=== PATIENT | female | born 1950 | race American Indian/Alaskan Native ===

== ENCOUNTER 2016-12-14 10:37 | Emergency (ER) | payer MEDICARE ==
[2016-12-14 11:55] LABS: Bilirubin,Urine NEG (Negative); Blood,Urine SM (Negative); Ketones,Urine NEG (Negative); Leukocyte Esterase,Urine TR (Negative); Mucus,Urine FEW /HPF; Nitrite,Urine NEG (Negative); Urobilinogen,Urine < 2.0 mg/dL (<2.0)
--- NOTE | 2016-12-14 11:58 | Emergency Department Report ---
ED Altered Mental Status HPI - General Chief Complaint: Altered Mental Status Stated Complaint: AMS Time Seen by Provider: 12/14/16 11:23 Source: EMS Mode of arrival: Stretcher Limitations: Other (dementia) - History of Present Illness Initial Comments: 66-year-old female presents to the emergency department via EMS for evaluation of altered mental status. History is obtained from EMS and the patient's family due to the patient's dementia. Per report, the patient had a syncopal episode at her adult day care facility while attempting to have a bowel movement. Upon EMS arrival on the scene, the patient was conscious and alert. Nursing notes report that the patient was complaining of generalized pain. Patient is denying pain at this time. There are no other complaints. MD Complaint: altered mental status -: Sudden, This morning Severity: moderate Consistency of Symptoms: unknown (currently resolved) Associated Symptoms: denies other symptoms - Related Data Home Medications Medication Instructions Recorded Confirmed Last Taken ALPRAZolam [Alprazolam] 0.5 mg PO Q12HR PRN 03/20/14 05/24/16 03/19/14 Donepezil [Aricept] 10 mg PO QDAY 03/20/14 05/24/16 03/19/14 Latanoprost 0.005% [Xalatan 0.005%] 1 drop OP QPM 09/21/15 05/24/16 Unknown Lisinopril [Zestril TAB] 5 mg PO QDAY 09/21/15 05/24/16 Unknown Previous Rx's Medication Instructions Recorded Last Taken Type Aspirin [Aspirin TAB] 325 mg PO QDAY #30 tablet 08/15/14 Unknown Rx Metoprolol [Lopressor TAB] 50 mg PO QDAY #30 tablet 08/15/14 Unknown Rx Simvastatin [Zocor TAB] 20 mg PO QHS #30 tablet 08/15/14 Unknown Rx guaiFENesin DM [Robitussin Dm] 10 ml PO Q4H PRN #150 oral.liqd 08/15/14 Unknown Rx levETIRAcetam [Keppra TAB] 500 mg PO BID 30 Days 05/26/16 Unknown Rx Allergies Allergy/AdvReac Type Severity Reaction Status Date / Time No Known Allergies Allergy Verified 08/13/14 08:26 ED Review of Systems ROS: Stated complaint: AMS Other details as noted in HPI Comment: Unobtainable due to pts medical conditions ED Past Medical Hx - Past Medical History Previous Medical History?: Yes Hx Hypertension: Yes Hx CVA: Yes (Left sided deficits, had resolved.) Hx Seizures: Yes (epilepsy) Hx Dementia: Yes - Surgical History Past Surgical History?: Yes Hx Pacemaker: Yes Additional Surgical History: pacemaker to L chest - Family History Family history: no significant - Social History Smoking Status: Never Smoker - Medications Home Medications: Home Medications Medication Instructions Recorded Confirmed Last Taken Type ALPRAZolam [Alprazolam] 0.5 mg PO Q12HR PRN 03/20/14 05/24/16 03/19/14 History Donepezil [Aricept] 10 mg PO QDAY 03/20/14 05/24/16 03/19/14 History Aspirin [Aspirin TAB] 325 mg PO QDAY #30 tablet 08/15/14 05/24/16 Unknown Rx Metoprolol [Lopressor TAB] 50 mg PO QDAY #30 tablet 08/15/14 05/24/16 Unknown Rx Simvastatin [Zocor TAB] 20 mg PO QHS #30 tablet 08/15/14 05/24/16 Unknown Rx guaiFENesin DM [Robitussin Dm] 10 ml PO Q4H PRN #150 oral.liqd 08/15/14 Unknown Rx Latanoprost 0.005% [Xalatan 0.005%] 1 drop OP QPM 09/21/15 05/24/16 Unknown History Lisinopril [Zestril TAB] 5 mg PO QDAY 09/21/15 05/24/16 Unknown History levETIRAcetam [Keppra TAB] 500 mg PO BID 30 Days 05/26/16 Unknown Rx ED Physical Exam - General Limitations: Other (dementia) General appearance: alert, in no apparent distress - Head Head exam: Present: atraumatic, normocephalic - Eye Eye exam: Present: normal appearance, PERRL, EOMI - ENT ENT exam: Present: normal exam, normal orophraynx, mucous membranes moist - Neck Neck exam: Present: normal inspection, full ROM. Absent: tenderness - Respiratory Respiratory exam: Present: normal lung sounds bilaterally. Absent: respiratory distress - Cardiovascular Cardiovascular Exam: Present: regular rate, normal rhythm, normal heart sounds - GI/Abdominal GI/Abdominal exam: Present: soft, normal bowel sounds. Absent: distended, tenderness - Extremities Exam Extremities exam: Present: normal inspection, full ROM. Absent: tenderness - Back Exam Back exam: Present: normal inspection, full ROM. Absent: tenderness - Neurological Exam Neurological exam: Present: alert. Absent: oriented X3 (person only) - Skin Skin exam: Present: warm, dry, intact ED Course Vital Signs 12/14/16 10:41 Pulse Rate 75 Respiratory 16 Rate Blood Pressure 133/93 O2 Sat by Pulse 98 Oximetry - Lab Data Result diagrams: 12/14/16 11:23 12/14/16 11:23 Lab Results 12/14/16 12/14/16 12/14/16 Range/Units 11:23 11:23 11:23 WBC 5.0 (4.5-11.0) K/mm3 RBC 4.68 (3.65-5.03) M/mm3 Hgb 12.9 (10.1-14.3) gm/dl Hct 41.2 (30.3-42.9) % MCV 88 (79-97) fl MCH 28 (28-32) pg MCHC 31 (30-34) % RDW 14.5 (13.2-15.2) % Plt Count 306 (140-440) K/mm3 Lymph % (Auto) 12.3 L (13.4-35.0) % [place] % (Auto) 8.7 H (0.0-7.3) % Eos % (Auto) 0.5 (0.0-4.3) % Baso % (Auto) 0.4 (0.0-1.8) % Lymph # 0.6 L (1.2-5.4) K/mm3 [place] # 0.4 (0.0-0.8) K/mm3 Eos # 0.0 (0.0-0.4) K/mm3 Baso # 0.0 (0.0-0.1) K/mm3 Seg Neutrophils % 78.1 H (40.0-70.0) % Seg Neutrophils # 3.9 (1.8-7.7) K/mm3 PT 14.1 (12.2-14.9) Sec. INR 1.10 (0.87-1.13) APTT 26.8 (24.2-36.6) Sec. Sodium 139 (137-145) mmol/L Potassium 4.6 (3.6-5.0) mmol/L Chloride 100.2 (98-107) mmol/L Carbon Dioxide 23 (22-30) mmol/L Anion Gap 20 mmol/L BUN 16 (7-17) mg/dL Creatinine 0.7 (0.7-1.2) mg/dL Estimated GFR > 60 ml/min BUN/Creatinine Ratio 22.85 % Glucose 94 (65-100) mg/dL Calcium 9.1 (8.4-10.2) mg/dL Total Creatine Kinase 74 (30-135) units/L Troponin T < 0.010 (0.00-0.029) ng/mL Urine Color (Yellow) Urine Turbidity (Clear) Urine pH (5.0-7.0) Ur Specific [place] (1.003-1.030) Urine Protein (Negative) mg/dL Urine Glucose (UA) (Negative) mg/dL Urine Ketones (Negative) mg/dL Urine Blood (Negative) Urine Nitrite (Negative) Urine Bilirubin (Negative) Urine Urobilinogen (<2.0) mg/dL Ur Leukocyte Esterase (Negative) Urine WBC (Auto) (0.0-6.0) /HPF Urine RBC (Auto) (0.0-6.0) /HPF U Epithel Cells (Auto) (0-13.0) /HPF Urine Mucus /HPF 12/14/16 Range/Units 11:30 WBC (4.5-11.0) K/mm3 RBC (3.65-5.03) M/mm3 Hgb (10.1-14.3) gm/dl Hct (30.3-42.9) % MCV (79-97) fl MCH (28-32) pg MCHC (30-34) % RDW (13.2-15.2) % Plt Count (140-440) K/mm3 Lymph % (Auto) (13.4-35.0) % [place] % (Auto) (0.0-7.3) % Eos % (Auto) (0.0-4.3) % Baso % (Auto) (0.0-1.8) % Lymph # (1.2-5.4) K/mm3 [place] # (0.0-0.8) K/mm3 Eos # (0.0-0.4) K/mm3 Baso # (0.0-0.1) K/mm3 Seg Neutrophils % (40.0-70.0) % Seg Neutrophils # (1.8-7.7) K/mm3 PT (12.2-14.9) Sec. INR (0.87-1.13) APTT (24.2-36.6) Sec. Sodium (137-145) mmol/L Potassium (3.6-5.0) mmol/L Chloride (98-107) mmol/L Carbon Dioxide (22-30) mmol/L Anion Gap mmol/L BUN (7-17) mg/dL Creatinine (0.7-1.2) mg/dL Estimated GFR ml/min BUN/Creatinine Ratio % Glucose (65-100) mg/dL Calcium (8.4-10.2) mg/dL Total Creatine Kinase (30-135) units/L Troponin T (0.00-0.029) ng/mL Urine Color Yellow (Yellow) Urine Turbidity Clear (Clear) Urine pH 6.0 (5.0-7.0) Ur Specific [place] 1.020 (1.003-1.030) Urine Protein 100 mg/dl (Negative) mg/dL Urine Glucose (UA) Neg (Negative) mg/dL Urine Ketones Neg (Negative) mg/dL Urine Blood Sm (Negative) Urine Nitrite Neg (Negative) Urine Bilirubin Neg (Negative) Urine Urobilinogen < 2.0 (<2.0) mg/dL Ur Leukocyte Esterase Tr (Negative) Urine WBC (Auto) 5.0 (0.0-6.0) /HPF Urine RBC (Auto) 9.0 (0.0-6.0) /HPF U Epithel Cells (Auto) < 1.0 (0-13.0) /HPF Urine Mucus Few /HPF - EKG Data -: EKG Interpreted by Me Rate: normal When compared to previous EKG there are: previous EKG unavailable Interpretation: other (AV sequential pacemaker) - Medical Decision Making Laboratory results reviewed. Patient is at her baseline mental status per family. Patient will be discharged at this time. - Differential Diagnosis vasovagal syncope, occult infection, electrolyte abnormality Critical care attestation.: If time is entered above; I have spent that time in minutes in the direct care of this critically ill patient, excluding procedure time. ED Disposition Clinical Impression: Vasovagal syncope Disposition: DISCHARGED TO HOME OR SELFCARE Is pt being admited?: No Condition: Stable Instructions: Syncope (ED) Referrals: HILDA TURCIOS [Other] - 3-5 Days Time of Disposition: 12:20
[2016-12-14 12:05] LABS: BUN/Creatinine Ratio 22.85; Blood Urea Nitrogen 16 mg/dL (7-17); Calcium 9.1 mg/dL (8.4-10.2); Carbon Dioxide 23 mmol/L (22-30); Creatine Kinase 74 units/L (30-135); Glucose 94 mg/dL (65-100)
[2016-12-14 12:06] LABS: Anion Gap 20 mmol/L; Basophils % (Auto) 0.4 % (0.0-1.8); Chloride 100.2 mmol/L (98-107); Eosinophils % (Auto) 0.5 % (0.0-4.3); Hematocrit 41.2 % (30.3-42.9); Hemoglobin 12.9 gm/dl (10.1-14.3); Mean Corpuscular HGB Conc 31 % (30-34); Mean Corpuscular Hemoglobin 28 pg (28-32); Mean Corpuscular Volume 88 fl (79-97); Platelet Count 306 K/mm3 (140-440); Potassium 4.6 mmol/L (3.6-5.0); Red Blood Count 4.68 M/mm3 (3.65-5.03); Red Cell Distribution Width 14.5 % (13.2-15.2); Sodium 139 mmol/L (137-145)
[2016-12-14 12:14] LABS: INR 1.1 (0.87-1.13)
[2016-12-14 12:15] LABS: Partial Thromboplastin Time 26.8 Sec. (24.2-36.6)
[2016-12-14 14:20] VITALS: BP 169/93
== END 2016-12-14 14:10 | disposition home or self-care (01) ==
LOC: ED 10:37
DX: R55 Syncope and collapse (principal); I10 Essential (primary) hypertension; G40.909 Epilepsy, unspecified, not intractable, without status epilepticus; F03.90 Unspecified dementia, unspecified severity, without behavioral disturbance, psychotic disturbance, mood disturbance, and anxiety; Z95.0 Presence of cardiac pacemaker; Z86.73 Personal history of transient ischemic attack (TIA), and cerebral infarction without residual deficits
CPT/HCPCS: 36415; 80048; 81001; 82550; 84484; 85025; 85610; 85730; 93005; 93010; 99284

== ENCOUNTER 2017-04-05 14:33 | Inpatient (IN) | payer MEDICARE ==
[2017-04-05] MEDS ORDERED: MORPHINE IV ONE (15:56)
[2017-04-05] MEDS ORDERED: NACL ONE (16:52)
[2017-04-05 17:04] LABS: Basophils % (Auto) 0.6 % (0.0-1.8); Eosinophils % (Auto) 2.1 % (0.0-4.3); Hematocrit 36.5 % (30.3-42.9); Mean Corpuscular HGB Conc 33 % (30-34); Mean Corpuscular Hemoglobin 28 pg (28-32); Mean Corpuscular Volume 85 fl (79-97); Platelet Count 235 K/mm3 (140-440); Red Blood Count 4.29 M/mm3 (3.65-5.03); Red Cell Distribution Width 16.3 % (13.2-15.2); White Blood Count 4.8 K/mm3 (4.5-11.0)
[2017-04-05 17:25] LABS: Chloride TNR mmol/L (98-107); Potassium TNR mmol/L (3.6-5.0); Sodium TNR mmol/L (137-145)
[2017-04-05 17:26] LABS: Anion Gap TNR mmol/L; Carbon Dioxide TNR mmol/L (22-30)
[2017-04-05 17:27] LABS: BUN/Creatinine Ratio TNR; Bilirubin,Total TNR mg/dL (0.1-1.2); Blood Urea Nitrogen TNR mg/dL (7-17); Calcium TNR mg/dL (8.4-10.2); Glucose TNR mg/dL (65-100)
[2017-04-05 17:28] LABS: Alanine Aminotransferase TNR units/L (7-56); Albumin TNR g/dL (3.9-5); Albumin/Globulin Ratio TNR %; Alkaline Phosphatase TNR units/L (35-129); Total Protein TNR g/dL (6.3-8.2)
--- NOTE | 2017-04-05 17:38 | Emergency Department Report ---
ED General Adult HPI - General Chief complaint: Fall Stated complaint: FALL Time Seen by Provider: 04/05/17 15:37 Source: EMS Mode of arrival: Stretcher Limitations: Physical Limitation - History of Present Illness Initial comments: Patient is a 66-year-old female past medical history of dementia who presents with falls and abdominal pain. Patient states the pain is in the epigastric area as a 7 out of 10 and doesn't radiate it is an achy type of pain. Nothing makes the pain better or worse. Pain has been going on since this morning. Patient denies having any nausea or vomiting. Patient's pulse ox is 98% on room air. The patient also had a fall today she denies having any loss of consciousness. Severity scale (0 -10): 6 - Related Data Home Medications Medication Instructions Recorded Confirmed Last Taken ALPRAZolam [Alprazolam] 0.5 mg PO Q12HR PRN 03/20/14 05/24/16 03/19/14 Donepezil [Aricept] 10 mg PO QDAY 03/20/14 05/24/16 03/19/14 Latanoprost 0.005% [Xalatan 0.005%] 1 drop OP QPM 09/21/15 05/24/16 Unknown Lisinopril [Zestril TAB] 5 mg PO QDAY 09/21/15 05/24/16 Unknown Previous Rx's Medication Instructions Recorded Last Taken Type Aspirin [Aspirin TAB] 325 mg PO QDAY #30 tablet 08/15/14 Unknown Rx Metoprolol [Lopressor TAB] 50 mg PO QDAY #30 tablet 08/15/14 Unknown Rx Simvastatin [Zocor TAB] 20 mg PO QHS #30 tablet 08/15/14 Unknown Rx guaiFENesin DM [Robitussin Dm] 10 ml PO Q4H PRN #150 oral.liqd 08/15/14 Unknown Rx levETIRAcetam [Keppra TAB] 500 mg PO BID 30 Days 05/26/16 Unknown Rx Allergies Allergy/AdvReac Type Severity Reaction Status Date / Time No Known Allergies Allergy Verified 08/13/14 08:26 ED Review of Systems ROS: Stated complaint: FALL Other details as noted in HPI Constitutional: denies: chills, fever Eyes: denies: eye pain, eye discharge, vision change ENT: denies: ear pain, throat pain Respiratory: denies: cough, shortness of breath, wheezing Cardiovascular: denies: chest pain, palpitations Endocrine: no symptoms reported Gastrointestinal: abdominal pain Genitourinary: denies: urgency, dysuria, discharge Musculoskeletal: denies: back pain, joint swelling, arthralgia Skin: denies: rash, lesions Neurological: other (falls) Psychiatric: denies: anxiety, depression Hematological/Lymphatic: denies: easy bleeding, easy bruising ED Past Medical Hx - Past Medical History Previous Medical History?: Yes Hx Hypertension: Yes Hx CVA: Yes (Left sided deficits, had resolved.) Hx Seizures: Yes (epilepsy) Hx Dementia: Yes - Surgical History Past Surgical History?: Yes Hx Pacemaker: Yes Additional Surgical History: pacemaker to L chest - Social History Smoking Status: Never Smoker Substance Use Type: None - Medications Home Medications: Home Medications Medication Instructions Recorded Confirmed Last Taken Type ALPRAZolam [Alprazolam] 0.5 mg PO Q12HR PRN 03/20/14 05/24/16 03/19/14 History Donepezil [Aricept] 10 mg PO QDAY 03/20/14 05/24/16 03/19/14 History Aspirin [Aspirin TAB] 325 mg PO QDAY #30 tablet 08/15/14 05/24/16 Unknown Rx Metoprolol [Lopressor TAB] 50 mg PO QDAY #30 tablet 08/15/14 05/24/16 Unknown Rx Simvastatin [Zocor TAB] 20 mg PO QHS #30 tablet 08/15/14 05/24/16 Unknown Rx guaiFENesin DM [Robitussin Dm] 10 ml PO Q4H PRN #150 oral.liqd 08/15/14 Unknown Rx Latanoprost 0.005% [Xalatan 0.005%] 1 drop OP QPM 09/21/15 05/24/16 Unknown History Lisinopril [Zestril TAB] 5 mg PO QDAY 09/21/15 05/24/16 Unknown History levETIRAcetam [Keppra TAB] 500 mg PO BID 30 Days 05/26/16 Unknown Rx ED Physical Exam - General Limitations: Physical Limitation General appearance: alert - Head Head exam: Present: other (left hematoma) - Eye Eye exam: Present: normal appearance, EOMI - ENT ENT exam: Present: normal orophraynx - Neck Neck exam: Present: normal inspection - Respiratory Respiratory exam: Present: normal lung sounds bilaterally - Cardiovascular Cardiovascular Exam: Present: regular rate, normal rhythm - GI/Abdominal GI/Abdominal exam: Present: soft - Extremities Exam Extremities exam: Present: normal inspection - Back Exam Back exam: Present: normal inspection - Neurological Exam Neurological exam: Present: alert - Psychiatric Psychiatric exam: Present: agitated - Skin Skin exam: Present: warm, dry ED Course Vital Signs 04/05/17 04/05/17 04/05/17 14:57 15:00 15:11 Temperature 98.7 F Pulse Rate 82 Respiratory 18 Rate Blood Pressure 181/94 Blood Pressure 181/94 [Left] O2 Sat by Pulse 46 L 99 99 Oximetry 04/05/17 04/05/17 04/05/17 15:30 15:53 16:00 Temperature Pulse Rate Respiratory 16 Rate Blood Pressure 181/94 181/94 Blood Pressure [Left] O2 Sat by Pulse 100 99 100 Oximetry 04/05/17 04/05/17 04/05/17 16:30 16:43 17:00 Temperature Pulse Rate Respiratory 16 Rate Blood Pressure 181/94 181/94 Blood Pressure [Left] O2 Sat by Pulse 98 100 Oximetry 04/05/17 04/05/17 04/05/17 17:48 18:00 18:30 Temperature Pulse Rate Respiratory Rate Blood Pressure 181/94 181/94 181/94 Blood Pressure [Left] O2 Sat by Pulse 98 99 99 Oximetry 04/05/17 04/05/17 04/05/17 19:00 19:30 19:42 Temperature 98.7 F Pulse Rate 70 Respiratory Rate Blood Pressure 181/94 79/42 Blood Pressure 94/70 [Left] O2 Sat by Pulse 99 98 98 Oximetry 04/05/17 20:36 Temperature Pulse Rate Respiratory 16 Rate Blood Pressure Blood Pressure [Left] O2 Sat by Pulse 98 Oximetry - Reevaluation(s) Reevaluation #1: 04/05/17 23:25 Patient's pain is better controlled and she is resting comfortably. Vital signs are stable. ED Medical Decision Making - Lab Data Result diagrams: 04/05/17 16:25 04/05/17 20:41 Laboratory Results - last 24 hr 04/05/17 04/05/17 04/05/17 16:25 16:25 16:25 WBC 4.8 RBC 4.29 Hgb 12.0 Hct 36.5 MCV 85 MCH 28 MCHC 33 RDW 16.3 H Plt Count 235 Lymph % (Auto) 25.8 [place] % (Auto) 11.7 H Eos % (Auto) 2.1 Baso % (Auto) 0.6 Lymph # 1.2 [place] # 0.6 Eos # 0.1 Baso # 0.0 Seg Neutrophils % 59.8 Seg Neutrophils # 2.9 Sodium TNR Potassium TNR Chloride TNR Carbon Dioxide TNR Anion Gap TNR BUN TNR Creatinine TNR Estimated GFR TNR BUN/Creatinine Ratio TNR Glucose TNR Calcium TNR Total Bilirubin TNR AST TNR ALT TNR Alkaline Phosphatase TNR Total Protein TNR Albumin TNR Albumin/Globulin Ratio TNR Lipase 58 Laboratory Results - last 24 hr 04/05/17 04/05/17 04/05/17 16:25 16:25 16:25 WBC 4.8 RBC 4.29 Hgb 12.0 Hct 36.5 MCV 85 MCH 28 MCHC 33 RDW 16.3 H Plt Count 235 Lymph % (Auto) 25.8 [place] % (Auto) 11.7 H Eos % (Auto) 2.1 Baso % (Auto) 0.6 Lymph # 1.2 [place] # 0.6 Eos # 0.1 Baso # 0.0 Seg Neutrophils % 59.8 Seg Neutrophils # 2.9 Sodium TNR Potassium TNR Chloride TNR Carbon Dioxide TNR Anion Gap TNR BUN TNR Creatinine TNR Estimated GFR TNR BUN/Creatinine Ratio TNR Glucose TNR Calcium TNR Total Bilirubin TNR AST TNR ALT TNR Alkaline Phosphatase TNR Total Protein TNR Albumin TNR Albumin/Globulin Ratio TNR Lipase 58 04/05/17 04/05/17 04/05/17 18:48 20:41 20:41 WBC RBC Hgb Hct MCV MCH MCHC RDW Plt Count Lymph % (Auto) [place] % (Auto) Eos % (Auto) Baso % (Auto) Lymph # [place] # Eos # Baso # Seg Neutrophils % Seg Neutrophils # Sodium TNR 140 Potassium TNR 3.8 Chloride TNR 102.9 Carbon Dioxide TNR Anion Gap TNR BUN TNR Creatinine TNR 0.5 L Estimated GFR TNR > 60 BUN/Creatinine Ratio TNR Glucose TNR 89 Calcium TNR Total Bilirubin TNR AST TNR ALT TNR Alkaline Phosphatase TNR Total Protein TNR Albumin TNR Albumin/Globulin Ratio TNR Lipase 04/05/17 04/05/17 20:41 20:41 WBC RBC Hgb Hct MCV MCH MCHC RDW Plt Count Lymph % (Auto) [place] % (Auto) Eos % (Auto) Baso % (Auto) Lymph # [place] # Eos # Baso # Seg Neutrophils % Seg Neutrophils # Sodium Potassium Chloride Carbon Dioxide 26 Anion Gap BUN 18 H Creatinine Estimated GFR BUN/Creatinine Ratio Glucose Calcium Total Bilirubin AST ALT Alkaline Phosphatase Total Protein Albumin Albumin/Globulin Ratio Lipase - Radiology Data Radiology results: pending, report reviewed, image reviewed CT abdomen shows signs of ileus and fecal impaction. - Medical Decision Making Chief medical diagnosis: Gastroenteritis Differential medical diagnosis: Appendicitis, cholelithiasis, elbow OR MELANOTIC DUE TO PATIENT HAVING FALLS. CT HEAD, CT ABDOMEN, CBC, CMP Patient's CT shows signs of adynamic ileus due to patient having abdominal pain will admit patient to the hospital. Critical care attestation.: If time is entered above; I have spent that time in minutes in the direct care of this critically ill patient, excluding procedure time. ED Disposition Clinical Impression: Adynamic ileus, Frequent falls Scalp hematoma Qualifiers: Encounter type: initial encounter Qualified Code(s): S00.03XA - Contusion of scalp, initial encounter Abdominal pain Qualifiers: Abdominal location: generalized Qualified Code(s): R10.84 - Generalized abdominal pain Disposition: OP ADMIT IP TO THIS HOSP Is pt being admited?: Yes Does the pt Need Aspirin: No Condition: Stable Referrals: PRIMARY CARE, [Primary Care Provider] - 3-5 Days Time of Disposition: 23:26
--- NOTE | 2017-04-05 18:21 | Cat Scan Report ---
FINAL REPORT EXAM: CT HEAD/BRAIN WO CON HISTORY: fall TECHNIQUE: CT examination of the head without IV contrast PRIORS: None. FINDINGS: Mucosal thickening right maxillary sinus. Left frontoparietal scalp swelling with scalp hematoma. Adjacent skull appears intact. No acute air-fluid level visualized in the included air-filled sinuses. Bone windows demonstrate no acute fracture. There is ventricular and sulcal prominence compatible with global cerebrocortical atrophy. Low attenuation regions in the cerebral white matter, while nonspecific, are present and usually attributed to chronic ischemic gliosis. The differential includes demyelination in the appropriate clinical setting. The brain contains no mass, mass effect, hemorrhage, or acute infarct. There is no extra-axial intracranial bleed or brain bleed. There is no midline shift. Small hypodensity is present in the left internal capsule and left cerebellar hemisphere. These are suggestive of chronic lacunar infarcts. Patient motion artifact degrades image quality and limits the examination. IMPRESSION: No acute CVA, intracranial bleed, or brain mass Chronic appearing lacunar infarcts in left internal capsule and left cerebellar hemisphere
--- NOTE | 2017-04-05 18:36 | Cat Scan Report ---
FINAL REPORT EXAM: CT ABDOMEN PELVIS W CON HISTORY: epigastric abdominal pain TECHNIQUE: CT examination of the ABDOMEN after IV contrast CT examination of the PELVIS after IV contrast PRIORS: None. FINDINGS: Curvilinear density in posterior right lung base may be scar or atelectasis. Patient arm in the diagnostic [id number] degrades image quality and limits the examination. Cardiac size enlarged without pericardial effusion. Normal-appearing liver, gallbladder, adrenals, pancreas, and spleen. Intact normal caliber abdominal aorta with moderate calcified and noncalcified atherosclerotic plaque. Normal caliber IVC. Prominent calcification at the origin of the celiac artery and SMA may be associated with stenosis. Nonspecific, smoothly marginated, low density bilateral renal lesions may be cysts. No renal calculus or hydronephrosis. No proximal ureteral distention or calculus. The mid and distal ureters are obscured by adjacent anatomy. Slight gas-filled prominence of the stomach. Prominent gas in the duodenum. No definite small bowel distention in the abdomen and pelvis. Diffuse prominence of gas and caliber throughout the colon may reflect paralytic ileus. Prominent stool with distention of the rectum suggestive of constipation. Scattered prominence of stool from cecum to rectum. Nonspecific slight pelvic free fluid. Normal-appearing urinary bladder. Uterus not visualized. No definite adnexal abnormality. No gross ascites or free air. No definite intestinal mural thickening. Normal-appearing terminal ileum. Appendix not visualized. No pericecal inflammation. IMPRESSION: Extensive prominence of gas, from stomach to rectum, and stool throughout the colon and rectum, may reflect a combination of constipation and paralytic ileus, possibly with rectal impaction. Curvilinear scar versus atelectasis in right lung base posteriorly Cardiomegaly Prominent calcification at the origin of the celiac artery and SMA may be associated with stenosis Slight pelvic free fluid may be reactive
[2017-04-05 19:55] LABS: Anion Gap TNR mmol/L; Carbon Dioxide TNR mmol/L (22-30); Chloride TNR mmol/L (98-107); Potassium TNR mmol/L (3.6-5.0); Sodium TNR mmol/L (137-145)
[2017-04-05 19:57] LABS: Alanine Aminotransferase TNR units/L (7-56); Albumin TNR g/dL (3.9-5); Albumin/Globulin Ratio TNR %; Alkaline Phosphatase TNR units/L (35-129); BUN/Creatinine Ratio TNR; Bilirubin,Total TNR mg/dL (0.1-1.2); Blood Urea Nitrogen TNR mg/dL (7-17); Calcium TNR mg/dL (8.4-10.2); Glucose TNR mg/dL (65-100); Total Protein TNR g/dL (6.3-8.2)
[2017-04-05] MEDS ORDERED: NACL 0.9% 1000 ML 1,000 ML IV ONE (21:00)
--- NOTE | 2017-04-05 21:03 | Admit Criteria Form ---
<AFUA JONES - Last Filed: 04/05/17 21:08> Admission Criteria Documentation: ABDOMINAL PAIN Clinical Indications for Admission to Inpatient Care (Place 'X' for any and all applicable criteria): Admission is indicated for ANY ONE of the following(1)(2)(3)(4)(5): [X ]I. Inpatient admission required rather than observation care (Also use Abdominal Pain: Observation Care, as appropriate) because of ANY ONE of the following: [ ]a) Severe pain requiring acute inpatient management [ ]b) Identification of etiology/finding that requires inpatient care (eg, aortic dissection, free air) [ ]c) Absent bowel sounds with complete ileus(6) [ ]d) Suspected toxic megacolon [ ]e) Severe electrolyte abnormalities requiring inpatient care [ ]f) High fever or infection requiring inpatient admission as indicated by ANY ONE of following(7)(8): [ ] i) Appropriate outpatient or observational care antimicrobial treatment unavailable, not effective, or not feasible [ ] ii) Documented bacteremia [ ] iii) Temperature > 104.9 degrees F (oral) [ ] iv) T >103.1 F (oral) or < 96.8 F(rectal) that does not respond to all emergency treatment measures [ ]g) Signs of intestinal obstruction [B] [ ]h) Hemodynamic instability [ ]i) IV fluid to replace significant ongoing losses (greater than 3 L/m2 per day) (12)(13) [ ]j) Percutaneous or open drainage (eg, abscess, biliary tract ) procedures [ ]k) Parenteral nutrition regimen that must be implemented on inpatient basis [X ]l) Other condition,treatment or monitoring requiring inpatient admission. [ ]II. Peritoneal signs present [ ]III. Surgery needed that cannot be performed on an ambulatory basis. [ ]IV. Evaluation requires patient to not eat or drink for extended period ( eg, more than 24 hours). [ ]V. Contraindications and/or Inappropriate clinical situations for Observational Care in patients with abdominal pain, when ANY ONE of the following is required: [ ]a) Thorough evaluation is required to prevent catastrophic events due to delays in diagnosing (e.g.Mesenteric ischemia) 1,3 [ ]b) Patient with severe pathology or with chronic symptoms unlikely to improve in the ED stay (3) [X ]. General contraindications and/or Inappropriate clinical situations for Observational Care in patients with abdominal pain, when ANY ONE of the following is required: [X ]a) Prediction of prolongation of LOS based on ANY ONE of the following may be considered as a contraindication for observational care 2, 3, 4, 5, 6, 7, 8, 9, 10, 11 [ X]i) Age > 65 yrs. [ ]ii) Patient arriving by ambulance [ ]iii) Patient with high acuity [ ]iv) Patient requiring vital sign monitoring [ ]v) Patient on IV medication [ ]b) Systolic blood pressures 180mmHg 3,12 [ ]c) Patient with altered mental status including delirium and other alteration of consciousness, (3) [ ]d) Patient whose discharge disposition will be to a intermediate home or rehabilitation home should not be managed in Emergency Department Observation Unit. CMS rule requires 3 days hospital stay before such placement.3,13 [ ]e) Patient with failure to thrive due to broad array of etiologies 3,16,17 [ ]f) Inability to ambulate 3,14 Extended stay beyond goal length of stay may be needed for(2)(3): [ ]a) Persistent abdominal pain with suspected intra-abdominal process [ ]b) Diagnosed condition requiring continued stay (e.g., pancreatitis, complicated diverticulitis) [ ]c) Surgery (e.g., colectomy) The original [employer] content created by [employer] has been revised. The portions of the content which have been revised are identified through the use of italic text or in bold, and [facility] has neither reviewed nor approved the modified material.All other unmodified content is copyright [employer] [facility]. Please see references footnoted in the original [employer] [facility] edition 2016 <RUSSELL DENT - Last Filed: 04/06/17 08:28> Admission Criteria Met: Yes
[2017-04-05 21:13] LABS: Chloride 102.9 mmol/L (98-107); Glucose 89 mg/dL (65-100); Potassium 3.8 mmol/L (3.6-5.0)
[2017-04-06] MEDS ORDERED: DULCOLAX PO PRN (00:45)
[2017-04-06] MEDS ORDERED: MILK OF MAGNESIA PO PRN (00:46)
[2017-04-06] MEDS ORDERED: ZOFRAN IV PRN (00:47)
[2017-04-06] MEDS ORDERED: TYLENOL PO PRN (00:48)
[2017-04-06] MEDS ORDERED: DULCOLAX PR PRN (01:38)
--- NOTE | 2017-04-06 05:42 | History and Physical Report ---
CHIEF COMPLAINT: Abdominal pain. Other complaints include fall. HISTORY OF PRESENT ILLNESS: The patient is a 66-year-old female who started having abdominal pain yesterday. Pain is in the epigastric area and was associated with nausea. The patient denies history of vomiting. Denied history of fever or chills and also admitted to a falling down on the lumbar spine. There was no history of chest pain, no history of shortness of breath or loss of consciousness following the fall. The patient admitted to having some constipation and presented for evaluation. PAST MEDICAL HISTORY: Pertinent for hypertension. Also, the patient has past history of cerebrovascular accident with left-sided weakness and also she has past medical history of epilepsy and dementia. PAST SURGICAL HISTORY: Pertinent for pacemaker placement. FAMILY HISTORY: Noncontributory. SOCIAL HISTORY: The patient does not smoke, does not drink alcohol and does not use illicit drugs. MEDICATIONS: The patient is on alprazolam 0.5 mg by mouth every 12 hours, Aricept 10 mg by mouth daily, aspirin 325 mg by mouth daily, metoprolol 50 mg by mouth daily, simvastatin 20 mg by mouth at bedtime, Robitussin 10 mL every 4 hours as needed for cough, Latanoprost 0.005%, Xalatan eyedrop one drop right eye q.p.m., lisinopril 5 mg by mouth at bedtime, Keppra 500 mg by mouth twice daily. ALLERGIES: There are no known drug allergies. REVIEW OF SYSTEMS: CONSTITUTIONAL: There is no fever, no chills, no diaphoresis. HEENT: There is no headache or sore throat. CARDIOVASCULAR: There is no chest pain or orthopnea. RESPIRATORY: There is no shortness of breath. No cough. GASTROINTESTINAL: Abdominal pain noted. Nausea noted. No vomiting. Constipation noted. No diarrhea. NEUROLOGICAL: There is no numbness, no dizziness, no altered mental status. MUSCULOSKELETAL: There is no joint pain or swelling. DERMATOLOGICAL: There is no skin rash or itching. GENITOURINARY: There is no dysuria, hematuria or flank pain. Rest of system review is normal. PHYSICAL EXAMINATION: GENERAL: At the time of exam, the patient was found to be alert, oriented x 3 and not in acute distress. VITAL SIGNS: Shows normal temperature with pulse of 98, normal respirations, blood pressure of 114/78 with O2 sat of 98% on room air. HEENT: Pupils are equal, round, reactive to light and accommodation. Extraocular muscles are intact. NECK: Supple with no JVD or carotid bruit. CARDIOVASCULAR: Showed normal first and second heart sounds with no gallops or murmur. RESPIRATORY: Showed good air entry on both sides of the lung with no abnormal breath sounds. GASTROINTESTINAL: Show abdomen to be full, soft with generalized tenderness, but no rigidity, no guarding, no rebound tenderness. NEUROLOGIC: Show no focal neurological deficits. MUSCULOSKELETAL: Show no joint swelling or tenderness. DERMATOLOGICAL: Show no skin rash. GENITOURINARY: Showing no costovertebral angle tenderness. PERTINENT LABORATORY AND IMAGING STUDIES: The patient had CT of the head done that shows no acute CVA. No intracranial bleed or brain mass. There is finding of chronic appearing lacunar infarct in the left internal capsule and left cerebellar hemisphere. Also, the patient had CT of the abdomen and pelvis done and this shows nonspecific pelvic free fluid. There is normal appearing urinary bladder, uterus not visualized. There is no definite adnexal abnormality, no gross ascites or free air. IMPRESSION: Extensive prominence of gas from stomach to rectum and stool throughout the colon and rectum and the radiologist says it may reflect a combination of constipation and paralytic ileus possibly with rectal impaction. There is also a finding of curvilinear scar versus atelectasis in the right lung base posteriorly. There is also finding of cardiomegaly and prominent calcification at the origin of the pelvic artery and the SMA may be associated with stenosis. There is finding of right pelvic fluid, which may be reactive. DIAGNOSES: 1. Ileus. 2. Constipation. PLAN: The patient will be admitted to medical floor and will be on Tylenol 650 mg every 4 hours as needed for fever and headache. Diet will be low sodium diet and the patient will be on Dulcolax suppository daily as needed for constipation and also milk of magnesium, which will be 30 mL daily as needed for constipation. The patient will be on IV normal saline at 75 mL an hour and will be on Zofran 4 mg IV every 6 hours as needed for nausea and vomiting. The patient's home medications will be reconciled and started as shown in the reconciliation section. The patient will be on IV morphine 2 mg every 4 hours as needed for pain. JOB# [id number] OCN/NTS
[2017-04-06] MEDS: HEPARIN SUB-Q SCH ×2 (10:25→21:37)
--- NOTE | 2017-04-06 18:23 | Event Note ---
Date: 04/06/17 Patient was seen and evaluated this morning, H&P was done this morning and reviewed. Laboratory values were reviewed.
[2017-04-07 04:24] LABS: Basophils % (Auto) 0.9 % (0.0-1.8); Eosinophils % (Auto) 2.6 % (0.0-4.3); Hematocrit 39.3 % (30.3-42.9); Hemoglobin 13.1 gm/dl (10.1-14.3); Mean Corpuscular HGB Conc 33 % (30-34); Mean Corpuscular Hemoglobin 28 pg (28-32); Mean Corpuscular Volume 85 fl (79-97); Platelet Count 256 K/mm3 (140-440); Red Blood Count 4.63 M/mm3 (3.65-5.03); Red Cell Distribution Width 16.3 % (13.2-15.2)
[2017-04-07 04:48] LABS: Anion Gap 19 mmol/L; Blood Urea Nitrogen 14 mg/dL (7-17); Calcium 9.1 mg/dL (8.4-10.2); Carbon Dioxide 25 mmol/L (22-30); Chloride 99.7 mmol/L (98-107); Glucose 103 mg/dL (65-100); Potassium 3.6 mmol/L (3.6-5.0); Sodium 140 mmol/L (137-145)
[2017-04-07] MEDS: HEPARIN SUB-Q SCH ×2 (09:03→23:23)
[2017-04-07] MEDS: APRESOLINE IV PRN ×3 (09:03→23:39)
[2017-04-07] MEDS: MORPHINE IV PRN ×3 (09:59→23:28)
[2017-04-07] MEDS ORDERED: XANAX PO PRN (15:30)
--- NOTE | 2017-04-07 15:42 | Progress Note ---
Assessment and Plan Assessment and plan: Dementia Confusion Ileus Abdominal pain - Patient had bowel movement yesterday - Pain control - Resume home medications - Psychiatry consult DVT prophylaxis Disposition -Continue inpatient care. History Interval history: Patient was seen and evaluated this morning, she was complaining of abdominal pain, patient was confused. Hospitalist Physical - Physical exam Narrative exam: Not in cardiopulmonary distress. The patient appeared well nourished and normally developed. Vital signs as documented. Head exam is unremarkable. No scleral icterus . Neck is without jugular venous distension, thyromegaly, or carotid bruits. Lungs are clear to auscultation. Cardiac exam reveals regular rate and Rhythm. First and second heart sounds normal. No murmurs, rubs or gallops. Abdominal exam reveals mild abdominal tenderness, with no guarding or rigidity . Extremities are nonedematous and both femoral and pedal pulses are normal. ASSISTANCE COORDINATOR: Alert and oriented x1 - Constitutional Vitals: Temp Pulse Resp BP Pulse Ox 99.4 F 75 18 165/75 99 04/07/17 09:33 04/07/17 09:33 04/07/17 10:38 04/07/17 09:33 04/06/17 22:00 Results - Labs CBC & Chem 7: 04/07/17 04:09 04/07/17 04:09 Labs: Laboratory Last Values WBC 5.0 K/mm3 (4.5-11.0) 04/07/17 04:09 RBC 4.63 M/mm3 (3.65-5.03) 04/07/17 04:09 Hgb 13.1 gm/dl (10.1-14.3) 04/07/17 04:09 Hct 39.3 % (30.3-42.9) 04/07/17 04:09 MCV 85 fl (79-97) 04/07/17 04:09 MCH 28 pg (28-32) 04/07/17 04:09 MCHC 33 % (30-34) 04/07/17 04:09 RDW 16.3 % (13.2-15.2) H 04/07/17 04:09 Plt Count 256 K/mm3 (140-440) 04/07/17 04:09 Lymph % (Auto) 43.4 % (13.4-35.0) H 04/07/17 04:09 [place] % (Auto) 14.1 % (0.0-7.3) H 04/07/17 04:09 Eos % (Auto) 2.6 % (0.0-4.3) 04/07/17 04:09 Baso % (Auto) 0.9 % (0.0-1.8) 04/07/17 04:09 Lymph # 2.2 K/mm3 (1.2-5.4) 04/07/17 04:09 [place] # 0.7 K/mm3 (0.0-0.8) 04/07/17 04:09 Eos # 0.1 K/mm3 (0.0-0.4) 04/07/17 04:09 Baso # 0.0 K/mm3 (0.0-0.1) 04/07/17 04:09 Seg Neutrophils % 39.0 % (40.0-70.0) L 04/07/17 04:09 Seg Neutrophils # 2.0 K/mm3 (1.8-7.7) 04/07/17 04:09 Sodium 140 mmol/L (137-145) 04/07/17 04:09 Potassium 3.6 mmol/L (3.6-5.0) 04/07/17 04:09 Chloride 99.7 mmol/L (98-107) 04/07/17 04:09 Carbon Dioxide 25 mmol/L (22-30) 04/07/17 04:09 Anion Gap 19 mmol/L 04/07/17 04:09 BUN 14 mg/dL (7-17) 04/07/17 04:09 Creatinine 0.8 mg/dL (0.7-1.2) D 04/07/17 04:09 Estimated GFR > 60 ml/min 04/07/17 04:09 BUN/Creatinine Ratio 17.50 % 04/07/17 04:09 Glucose 103 mg/dL (65-100) H 04/07/17 04:09 POC Glucose 104 (70-105) 04/07/17 03:43 Calcium 9.1 mg/dL (8.4-10.2) 04/07/17 04:09 Total Bilirubin TNR 04/05/17 18:48 AST TNR 04/05/17 18:48 ALT TNR 04/05/17 18:48 Alkaline Phosphatase TNR 04/05/17 18:48 Total Protein TNR 04/05/17 18:48 Albumin TNR 04/05/17 18:48 Albumin/Globulin Ratio TNR 04/05/17 18:48 Lipase 58 units/L (13-60) 04/05/17 16:25
[2017-04-07] MEDS: XALATAN 0.005% OD SCH (18:41)
[2017-04-07] MEDS: KEPPRA PO SCH (23:27)
[2017-04-08] MEDS: MORPHINE IV PRN (04:39)
[2017-04-08 04:57] LABS: Hematocrit 37.6 % (30.3-42.9); Hemoglobin 12.5 gm/dl (10.1-14.3); Mean Corpuscular HGB Conc 33 % (30-34); Mean Corpuscular Hemoglobin 29 pg (28-32); Mean Corpuscular Volume 85 fl (79-97); Platelet Count 235 K/mm3 (140-440); Red Cell Distribution Width 15.8 % (13.2-15.2); White Blood Count 4.5 K/mm3 (4.5-11.0)
[2017-04-08 05:12] LABS: Anion Gap 18 mmol/L; BUN/Creatinine Ratio 18.33; Blood Urea Nitrogen 11 mg/dL (7-17); Calcium 9.3 mg/dL (8.4-10.2); Carbon Dioxide 28 mmol/L (22-30); Chloride 100.8 mmol/L (98-107); Glucose 80 mg/dL (65-100); Potassium 3.5 mmol/L (3.6-5.0); Sodium 143 mmol/L (137-145)
[2017-04-08] MEDS: NACL 0.9% 1000 ML 1,000 ML IV SCH ×2 (05:15→18:15)
[2017-04-08 06:57] LABS: Basophils % (Manual) 0 % (0.0-1.8); Blastocytes % (Manual) 0 %
[2017-04-08 06:58] LABS: Anisocytosis 1+; Diff Status Complete
[2017-04-08] MEDS: HEPARIN SUB-Q SCH ×2 (10:34→22:36)
[2017-04-08] MEDS: ZESTRIL PO SCH (10:36)
[2017-04-08] MEDS: LOPRESSOR PO SCH (10:40)
[2017-04-08] MEDS: KEPPRA PO SCH ×2 (10:40→22:36)
[2017-04-08] MEDS: ARICEPT PO SCH (10:42)
--- NOTE | 2017-04-08 12:51 | Progress Note ---
Assessment and Plan Assessment and plan: Dementia Hallucination Confusion Ileus Abdominal pain - Patient had bowel movement yesterday - Pain control - Resume home medications - Pending Psychiatry consult DVT prophylaxis Disposition -Continue inpatient care. History Interval history: Patient was seen and evaluated this morning, patient was confused and sleepy. Hospitalist Physical - Physical exam Narrative exam: Not in cardiopulmonary distress. The patient appeared well nourished and normally developed. Vital signs as documented. Head exam is unremarkable. No scleral icterus . Neck is without jugular venous distension, thyromegaly, or carotid bruits. Lungs are clear to auscultation. Cardiac exam reveals regular rate and Rhythm. First and second heart sounds normal. No murmurs, rubs or gallops. Abdominal exam reveals mild abdominal tenderness, with no guarding or rigidity . Extremities are nonedematous and both femoral and pedal pulses are normal. FIELD HANDYMAN: Alert and oriented x1. - Constitutional Vitals: Temp Pulse Resp BP Pulse Ox 98.2 F 71 18 166/82 99 04/08/17 09:15 04/08/17 10:40 04/08/17 09:15 04/08/17 10:40 04/08/17 09:00 Results - Labs CBC & Chem 7: 04/08/17 04:21 04/08/17 04:21 Labs: Laboratory Last Values WBC 4.5 K/mm3 (4.5-11.0) 04/08/17 04:21 RBC 4.40 M/mm3 (3.65-5.03) 04/08/17 04:21 Hgb 12.5 gm/dl (10.1-14.3) 04/08/17 04:21 Hct 37.6 % (30.3-42.9) 04/08/17 04:21 MCV 85 fl (79-97) 04/08/17 04:21 MCH 29 pg (28-32) 04/08/17 04:21 MCHC 33 % (30-34) 04/08/17 04:21 RDW 15.8 % (13.2-15.2) H 04/08/17 04:21 Plt Count 235 K/mm3 (140-440) 04/08/17 04:21 Lymph % (Auto) 43.4 % (13.4-35.0) H 04/07/17 04:09 [place] % (Auto) Eviscerator 04/08/17 04:21 Eos % (Auto) 2.6 % (0.0-4.3) 04/07/17 04:09 Baso % (Auto) 0.9 % (0.0-1.8) 04/07/17 04:09 Lymph # 2.2 K/mm3 (1.2-5.4) 04/07/17 04:09 [place] # 0.7 K/mm3 (0.0-0.8) 04/07/17 04:09 Eos # 0.1 K/mm3 (0.0-0.4) 04/07/17 04:09 Baso # 0.0 K/mm3 (0.0-0.1) 04/07/17 04:09 Add Manual Diff Complete 04/08/17 04:21 Total Counted 100 04/08/17 04:21 Seg Neutrophils % 39.0 % (40.0-70.0) L 04/07/17 04:09 Seg Neuts % (Manual) 57.0 % (40.0-70.0) 04/08/17 04:21 Band Neutrophils % 0 % 04/08/17 04:21 Lymphocytes % (Manual) 26.0 % (13.4-35.0) 04/08/17 04:21 Reactive Lymphs % (Man) 1.0 % 04/08/17 04:21 Monocytes % (Manual) 15.0 % (0.0-7.3) H 04/08/17 04:21 Eosinophils % (Manual) 1.0 % (0.0-4.3) 04/08/17 04:21 Basophils % (Manual) 0 % (0.0-1.8) 04/08/17 04:21 Metamyelocytes % 0 % 04/08/17 04:21 Myelocytes % 0 % 04/08/17 04:21 Promyelocytes % 0 % 04/08/17 04:21 Blast Cells % 0 % 04/08/17 04:21 Nucleated RBC % Not Reportable 04/08/17 04:21 Seg Neutrophils # 2.0 K/mm3 (1.8-7.7) 04/07/17 04:09 Seg Neutrophils # Man 2.6 K/mm3 (1.8-7.7) 04/08/17 04:21 Band Neutrophils # 0.0 K/mm3 04/08/17 04:21 Lymphocytes # (Manual) 1.2 K/mm3 (1.2-5.4) 04/08/17 04:21 Abs React Lymphs (Man) 0.0 K/mm3 04/08/17 04:21 Monocytes # (Manual) 0.7 K/mm3 (0.0-0.8) 04/08/17 04:21 Eosinophils # (Manual) 0.0 K/mm3 (0.0-0.4) 04/08/17 04:21 Basophils # (Manual) 0.0 K/mm3 (0.0-0.1) 04/08/17 04:21 Metamyelocytes # 0.0 K/mm3 04/08/17 04:21 Myelocytes # 0.0 K/mm3 04/08/17 04:21 Promyelocytes # 0.0 K/mm3 04/08/17 04:21 Blast Cells # 0.0 K/mm3 04/08/17 04:21 WBC Morphology Not Reportable 04/08/17 04:21 Hypersegmented Neuts Not Reportable 04/08/17 04:21 Hyposegmented Neuts Not Reportable 04/08/17 04:21 Hypogranular Neuts Not Reportable 04/08/17 04:21 Smudge Cells Not Reportable 04/08/17 04:21 Toxic Granulation Not Reportable 04/08/17 04:21 Toxic Vacuolation Not Reportable 04/08/17 04:21 Dohle Bodies Not Reportable 04/08/17 04:21 Pelger-Huet Anomaly Not Reportable 04/08/17 04:21 Tasha Rods Not Reportable 04/08/17 04:21 Platelet Estimate Appears normal 04/08/17 04:21 Clumped Platelets Not Reportable 04/08/17 04:21 Plt Clumps, EDTA Not Reportable 04/08/17 04:21 Large Platelets Not Reportable 04/08/17 04:21 Giant Platelets Not Reportable 04/08/17 04:21 Platelet Satelliting Not Reportable 04/08/17 04:21 Plt Morphology Comment Not Reportable 04/08/17 04:21 RBC Morphology Not Reportable 04/08/17 04:21 Dimorphic RBCs Not Reportable 04/08/17 04:21 Polychromasia Not Reportable 04/08/17 04:21 Hypochromasia Not Reportable 04/08/17 04:21 Poikilocytosis Not Reportable 04/08/17 04:21 Anisocytosis 1+ 04/08/17 04:21 Microcytosis Not Reportable 04/08/17 04:21 Macrocytosis Not Reportable 04/08/17 04:21 Spherocytes Not Reportable 04/08/17 04:21 Pappenheimer Bodies Not Reportable 04/08/17 04:21 Sickle Cells Not Reportable 04/08/17 04:21 Target Cells Not Reportable 04/08/17 04:21 Tear Drop Cells Not Reportable 04/08/17 04:21 Ovalocytes Not Reportable 04/08/17 04:21 Helmet Cells Not Reportable 04/08/17 04:21 Che[place] Bodies Not Reportable 04/08/17 04:21 [place] Rings Not Reportable 04/08/17 04:21 [place] Cells Not Reportable 04/08/17 04:21 Bite Cells Not Reportable 04/08/17 04:21 Crenated Cell Not Reportable 04/08/17 04:21 Elliptocytes Not Reportable 04/08/17 04:21 Acanthocytes (Spur) Not Reportable 04/08/17 04:21 Rouleaux Not Reportable 04/08/17 04:21 Hemoglobin C Crystals Not Reportable 04/08/17 04:21 Schistocytes Not Reportable 04/08/17 04:21 Malaria parasites Not Reportable 04/08/17 04:21 Michael Bodies Not Reportable 04/08/17 04:21 Hem Pathologist Commnt No 04/08/17 04:21 Sodium 143 mmol/L (137-145) 04/08/17 04:21 Potassium 3.5 mmol/L (3.6-5.0) L 04/08/17 04:21 Chloride 100.8 mmol/L (98-107) 04/08/17 04:21 Carbon Dioxide 28 mmol/L (22-30) 04/08/17 04:21 Anion Gap 18 mmol/L 04/08/17 04:21 BUN 11 mg/dL (7-17) 04/08/17 04:21 Creatinine 0.6 mg/dL (0.7-1.2) L 04/08/17 04:21 Estimated GFR > 60 ml/min 04/08/17 04:21 BUN/Creatinine Ratio 18.33 % 04/08/17 04:21 Glucose 80 mg/dL (65-100) 04/08/17 04:21 POC Glucose 104 (70-105) 04/07/17 03:43 Calcium 9.3 mg/dL (8.4-10.2) 04/08/17 04:21 Total Bilirubin TNR 04/05/17 18:48 AST TNR 04/05/17 18:48 ALT TNR 04/05/17 18:48 Alkaline Phosphatase TNR 04/05/17 18:48 Total Protein TNR 04/05/17 18:48 Albumin TNR 04/05/17 18:48 Albumin/Globulin Ratio TNR 04/05/17 18:48 Lipase 58 units/L (13-60) 04/05/17 16:25
[2017-04-08] MEDS: XALATAN 0.005% OD SCH (17:16)
[2017-04-09 04:41] LABS: Anion Gap 15 mmol/L; Blood Urea Nitrogen 12 mg/dL (7-17); Calcium 8.4 mg/dL (8.4-10.2); Carbon Dioxide 24 mmol/L (22-30); Glucose 74 mg/dL (65-100); Potassium 4.3 mmol/L (3.6-5.0); Sodium 138 mmol/L (137-145)
[2017-04-09] MEDS: NACL 0.9% 1000 ML 1,000 ML IV SCH (07:07)
--- NOTE | 2017-04-09 08:36 | Progress Note ---
Assessment and Plan Assessment and plan: Dementia. Continue Aricept Hallucinations. For psychiatry evaluation today. Ileus. This is now resolved. Patient on regular diet. Seizure disorder. Continue Keppra History of stroke DVT prophylaxis with Heparin. Full CODE STATUS History Interval history: patient with dementia, having hallucibnations Hospitalist Physical - Physical exam Narrative exam: Gen appearance :Not in acute distress, HEENT: Normocephalic, atraumatic Neck: Supple, no JVD Lungs: Clear to auscultation bilaterally, no crackles, or wheezes. Heart: S1 and S2 regular, no murmurs, no gallops, rub Abdomen : Soft, non-tender, non-distended, normal bowel sounds Extremities :No edema, no clubbing or cyanosis Neuro: Sleepy, arouseable, - Constitutional Vitals: Temp Pulse Resp BP Pulse Ox 98.6 F 62 18 146/76 97 04/08/17 21:36 04/09/17 05:53 04/09/17 05:53 04/09/17 05:53 04/08/17 21:36 Results - Labs CBC & Chem 7: 04/08/17 04:21 04/09/17 03:38 Labs: Laboratory Last Values WBC 4.5 K/mm3 (4.5-11.0) 04/08/17 04:21 RBC 4.40 M/mm3 (3.65-5.03) 04/08/17 04:21 Hgb 12.5 gm/dl (10.1-14.3) 04/08/17 04:21 Hct 37.6 % (30.3-42.9) 04/08/17 04:21 MCV 85 fl (79-97) 04/08/17 04:21 MCH 29 pg (28-32) 04/08/17 04:21 MCHC 33 % (30-34) 04/08/17 04:21 RDW 15.8 % (13.2-15.2) H 04/08/17 04:21 Plt Count 235 K/mm3 (140-440) 04/08/17 04:21 Lymph % (Auto) 43.4 % (13.4-35.0) H 04/07/17 04:09 [place] % (Auto) Manager Managed Care 04/08/17 04:21 Eos % (Auto) 2.6 % (0.0-4.3) 04/07/17 04:09 Baso % (Auto) 0.9 % (0.0-1.8) 04/07/17 04:09 Lymph # 2.2 K/mm3 (1.2-5.4) 04/07/17 04:09 [place] # 0.7 K/mm3 (0.0-0.8) 04/07/17 04:09 Eos # 0.1 K/mm3 (0.0-0.4) 04/07/17 04:09 Baso # 0.0 K/mm3 (0.0-0.1) 04/07/17 04:09 Add Manual Diff Complete 04/08/17 04:21 Total Counted 100 04/08/17 04:21 Seg Neutrophils % 39.0 % (40.0-70.0) L 04/07/17 04:09 Seg Neuts % (Manual) 57.0 % (40.0-70.0) 04/08/17 04:21 Band Neutrophils % 0 % 04/08/17 04:21 Lymphocytes % (Manual) 26.0 % (13.4-35.0) 04/08/17 04:21 Reactive Lymphs % (Man) 1.0 % 04/08/17 04:21 Monocytes % (Manual) 15.0 % (0.0-7.3) H 04/08/17 04:21 Eosinophils % (Manual) 1.0 % (0.0-4.3) 04/08/17 04:21 Basophils % (Manual) 0 % (0.0-1.8) 04/08/17 04:21 Metamyelocytes % 0 % 04/08/17 04:21 Myelocytes % 0 % 04/08/17 04:21 Promyelocytes % 0 % 04/08/17 04:21 Blast Cells % 0 % 04/08/17 04:21 Nucleated RBC % Not Reportable 04/08/17 04:21 Seg Neutrophils # 2.0 K/mm3 (1.8-7.7) 04/07/17 04:09 Seg Neutrophils # Man 2.6 K/mm3 (1.8-7.7) 04/08/17 04:21 Band Neutrophils # 0.0 K/mm3 04/08/17 04:21 Lymphocytes # (Manual) 1.2 K/mm3 (1.2-5.4) 04/08/17 04:21 Abs React Lymphs (Man) 0.0 K/mm3 04/08/17 04:21 Monocytes # (Manual) 0.7 K/mm3 (0.0-0.8) 04/08/17 04:21 Eosinophils # (Manual) 0.0 K/mm3 (0.0-0.4) 04/08/17 04:21 Basophils # (Manual) 0.0 K/mm3 (0.0-0.1) 04/08/17 04:21 Metamyelocytes # 0.0 K/mm3 04/08/17 04:21 Myelocytes # 0.0 K/mm3 04/08/17 04:21 Promyelocytes # 0.0 K/mm3 04/08/17 04:21 Blast Cells # 0.0 K/mm3 04/08/17 04:21 WBC Morphology Not Reportable 04/08/17 04:21 Hypersegmented Neuts Not Reportable 04/08/17 04:21 Hyposegmented Neuts Not Reportable 04/08/17 04:21 Hypogranular Neuts Not Reportable 04/08/17 04:21 Smudge Cells Not Reportable 04/08/17 04:21 Toxic Granulation Not Reportable 04/08/17 04:21 Toxic Vacuolation Not Reportable 04/08/17 04:21 Dohle Bodies Not Reportable 04/08/17 04:21 Pelger-Huet Anomaly Not Reportable 04/08/17 04:21 Tasha Rods Not Reportable 04/08/17 04:21 Platelet Estimate Appears normal 04/08/17 04:21 Clumped Platelets Not Reportable 04/08/17 04:21 Plt Clumps, EDTA Not Reportable 04/08/17 04:21 Large Platelets Not Reportable 04/08/17 04:21 Giant Platelets Not Reportable 04/08/17 04:21 Platelet Satelliting Not Reportable 04/08/17 04:21 Plt Morphology Comment Not Reportable 04/08/17 04:21 RBC Morphology Not Reportable 04/08/17 04:21 Dimorphic RBCs Not Reportable 04/08/17 04:21 Polychromasia Not Reportable 04/08/17 04:21 Hypochromasia Not Reportable 04/08/17 04:21 Poikilocytosis Not Reportable 04/08/17 04:21 Anisocytosis 1+ 04/08/17 04:21 Microcytosis Not Reportable 04/08/17 04:21 Macrocytosis Not Reportable 04/08/17 04:21 Spherocytes Not Reportable 04/08/17 04:21 Pappenheimer Bodies Not Reportable 04/08/17 04:21 Sickle Cells Not Reportable 04/08/17 04:21 Target Cells Not Reportable 04/08/17 04:21 Tear Drop Cells Not Reportable 04/08/17 04:21 Ovalocytes Not Reportable 04/08/17 04:21 Helmet Cells Not Reportable 04/08/17 04:21 [place] Bodies Not Reportable 04/08/17 04:21 [place] Rings Not Reportable 04/08/17 04:21 [place] Cells Not Reportable 04/08/17 04:21 Bite Cells Not Reportable 04/08/17 04:21 Crenated Cell Not Reportable 04/08/17 04:21 Elliptocytes Not Reportable 04/08/17 04:21 Acanthocytes (Spur) Not Reportable 04/08/17 04:21 Rouleaux Not Reportable 04/08/17 04:21 Hemoglobin C Crystals Not Reportable 04/08/17 04:21 Schistocytes Not Reportable 04/08/17 04:21 Malaria parasites Not Reportable 04/08/17 04:21 Michael Bodies Not Reportable 04/08/17 04:21 Hem Pathologist Commnt No 04/08/17 04:21 Sodium 138 mmol/L (137-145) 04/09/17 03:38 Potassium 4.3 mmol/L (3.6-5.0) D 04/09/17 03:38 Chloride 103.0 mmol/L (98-107) 04/09/17 03:38 Carbon Dioxide 24 mmol/L (22-30) 04/09/17 03:38 Anion Gap 15 mmol/L 04/09/17 03:38 BUN 12 mg/dL (7-17) 04/09/17 03:38 Creatinine 0.5 mg/dL (0.7-1.2) L 04/09/17 03:38 Estimated GFR > 60 ml/min 04/09/17 03:38 BUN/Creatinine Ratio 24.00 % 04/09/17 03:38 Glucose 74 mg/dL (65-100) 04/09/17 03:38 POC Glucose 104 (70-105) 04/07/17 03:43 Calcium 8.4 mg/dL (8.4-10.2) 04/09/17 03:38 Total Bilirubin TNR 04/05/17 18:48 AST TNR 04/05/17 18:48 ALT TNR 04/05/17 18:48 Alkaline Phosphatase TNR 04/05/17 18:48 Total Protein TNR 04/05/17 18:48 Albumin TNR 04/05/17 18:48 Albumin/Globulin Ratio TNR 04/05/17 18:48 Lipase 58 units/L (13-60) 04/05/17 16:25
[2017-04-09] MEDS: KEPPRA PO SCH ×3 (08:42→22:42)
[2017-04-09] MEDS: ZESTRIL PO SCH (09:36)
[2017-04-09] MEDS: LOPRESSOR PO SCH (09:37)
[2017-04-09] MEDS: ARICEPT PO SCH (09:41)
[2017-04-09] MEDS: HEPARIN SUB-Q SCH ×2 (09:41→22:36)
--- NOTE | 2017-04-09 14:05 | Consultation ---
History of Present Illness - Reason for Consult Consult date: 04/09/17 Reason for consult: Mental Health Evaluation Requesting physician: SOFIA CARRILLO - Chief Complaint Chief complaint: "I want to sleep" - History of Present Psychiatric Illness Patient is a 66-year-old female past medical history of dementia who presents with falls and abdominal pain. Psychiatry was consulted to see patient for AMS. Today patient was calm, but sleepy during the assessment. She stated being very sleepy and wanted to get some rest when I introduced myself. She was able to tell me her correct , but stated the current President is Julio Haskins. Once patient made that statement she closed her eyes and wouldn't answer anymore questions. No gestures of SI/HI's and AVH's. Per the staff, no behavioral disturbances on this shift. Medications and Allergies Allergies Allergy/AdvReac Type Severity Reaction Status Date / Time No Known Allergies Allergy Verified 08/13/14 08:26 Home Medications Medication Instructions Recorded Confirmed Last Taken Type ALPRAZolam [Alprazolam] 0.5 mg PO Q12HR PRN 03/20/14 04/07/17 03/19/14 History Donepezil [Aricept] 10 mg PO QDAY 03/20/14 04/07/17 04/05/17 History Metoprolol [Lopressor TAB] 50 mg PO QDAY #30 tablet 08/15/14 04/07/17 04/05/17 Rx 50 mg Latanoprost 0.005% [Xalatan 0.005%] 1 drop OP QPM 09/21/15 04/07/17 04/04/17 History 1 drop Lisinopril [Zestril TAB] 5 mg PO QDAY 09/21/15 04/07/17 04/05/17 History levETIRAcetam [Keppra TAB] 500 mg PO BID 30 Days 05/26/16 04/07/17 04/05/17 11: 49 Rx Active Meds: Active Medications Acetaminophen (Tylenol) 650 mg PO Q4H PRN PRN Reason: For Pain/Fever/Headache Alprazolam (Xanax) 0.5 mg PO Q12HR PRN PRN Reason: Anxiety Last Admin: 04/07/17 23:26 Dose: 0.5 mg Bisacodyl (Dulcolax) 10 mg [facility] QDAY PRN PRN Reason: Constipation Donepezil HCl (Aricept) 10 mg PO QDAY [facility] Last Admin: 04/09/17 09:41 Dose: 10 mg Heparin Sodium (Porcine) (Heparin) 5,000 unit SUB-Q Q12HR [facility] Last Admin: 04/09/17 09:41 Dose: 5,000 unit Hydralazine HCl (Apresoline) 10 mg IV Q4HR PRN PRN Reason: Blood Pressure Last Admin: 04/07/17 23:39 Dose: 10 mg Sodium Chloride (Nacl 0.9% 1000 Ml) 1,000 mls @ 75 mls/hr IV DIRECT [facility] Last Admin: 04/09/17 07:07 Dose: 75 mls/hr Latanoprost (Xalatan 0.005%) 1 drops OD QPM [facility] Last Admin: 04/08/17 17:16 Dose: 1 drops Levetiracetam (Keppra) 500 mg PO BID [facility] Last Admin: 04/09/17 11:21 Dose: Not Given Lisinopril (Zestril) 5 mg PO QDAY [facility] Last Admin: 04/09/17 09:36 Dose: 5 mg Magnesium Hydroxide (Milk Of Magnesia) 30 ml PO DAILY PRN PRN Reason: Constipation Last Admin: 04/07/17 23:34 Dose: 30 ml Metoprolol Tartrate (Lopressor) 50 mg PO QDAY [facility] Last Admin: 04/09/17 09:37 Dose: 50 mg Morphine Sulfate (Morphine) 2 mg IV Q4H PRN PRN Reason: Pain, Moderate (4-6) Last Admin: 04/08/17 04:39 Dose: 2 mg Ondansetron HCl (Zofran) 4 mg IV Q8H PRN PRN Reason: Nausea And Vomiting Past psychiatric history - Past Medical History Past Medical History: hypertension, other (Dementia) Past Surgical History: Other (Unable to obtain) - past Psychiatric treatment and history psychiatric treatment history: Unable to obtain psy hx or fam psy hx. - Social History Social history: other (unable to obtain) Mental Status Exam - Vital signs Last Vital Signs Temp 98.2 F 04/09/17 09:25 Pulse 66 04/09/17 09:37 Resp 18 04/09/17 10:00 BP 163/86 04/09/17 09:37 Pulse Ox 99 04/09/17 10:00 - Exam Narrative exam: ROS: (-) psychosis MSE: Appearance: calm Behavior: regular eye contact Speech: low rate and tone Mood: "I am sleepy" Affect: congruent to mood Thought Process: unable to assess Thought Content: no gestures of SI/HI's and AVH's Motor Activity: lying in bed Cognition: A/Ox 2 Insight: limited Judgment: limited Results Result Diagrams: 04/08/17 04:21 04/09/17 03:38 Abnormal lab results 04/09/17 Range/Units 03:38 Creatinine 0.5 L (0.7-1.2) mg/dL All other labs normal. Assessment and Plan Assessment and plan: Impression: Historical Dx: Dementia. Today patient was calm, but sleepy during the assessment. No gestures of SI/HI's and AVH's. Medical: AMS Recommendation/Plan: D/C'd Xanax 0.5 mg PO and use Morphine only when indicated. Gather more collateral from family to determine treatment. Will follow-up with patient daily. The following recommendations are helpful for patients with AMS. 1. Frequently reorient patient and involve him/her in their care (simple explanations of procedures, tests, medications). 2. Lights on and shades open during daytime hours. 3. Try to avoid unnecessary interruptions to sleep during nighttime hours. 4. Obtain glasses, hearing aids from home if patient uses these at baseline. 5. Avoid medications that may alter the patient's mental status (especially narcotics - consider another medication for pain if possible, benzos, barbiturates, ambien, lunesta, and medications with excessive anticholinergic properties).
[2017-04-09] MEDS: XALATAN 0.005% OD SCH (17:02)
[2017-04-09] MEDS: APRESOLINE IV PRN (22:45)
--- NOTE | 2017-04-10 08:14 | Progress Note ---
Subjective - Reason for Consult Consult date: 04/10/17 Reason for consult: Psychiatry Follow-up - Chief Complaint Chief complaint: "Angelica" Patient is a 66-year-old female past medical history of dementia who presents with falls and abdominal pain. Today patient was calm and cooperative during the assessment. She was able to tell me that she resides with her daughter Sandra Zambrano. She stated that she was ready to eat her breakfast. No gestures of SI/HI's and AVH's. Mental Status Exam - Vital signs Last Vital Signs Temp 99.1 F 04/09/17 22:00 Pulse 66 04/09/17 22:45 Resp 18 04/09/17 22:00 BP 177/87 04/09/17 22:45 Pulse Ox 99 04/09/17 10:00 - Exam Narrative exam: MSE: Appearance: calm, cooperative Behavior: regular eye contact Speech: regular rate and tone Mood: "okay" Affect: congruent to mood Thought Process: circumstantial Thought Content: no gestures SI/HI's and AVH's Motor Activity: lying in bed Cognition: A/Ox 2 Insight: limited Judgment: limited Assessment and Plan Impression: Historical Dx: Dementia. Today patient was calm and cooperative during the assessment. No gestures of SI/HI's and AVH's. Medical: AMS Recommendation/Plan: Use Morphine 2 mg IV Q4hrs PRN only when indicated. Left a voicemail for Sandra Zambrano (daughter) at [phone] to call me back so I can gather collateral. Will follow-up with patient daily. The following recommendations are helpful for patients with AMS. 1. Frequently reorient patient and involve him/her in their care (simple explanations of procedures, tests, medications). 2. Lights on and shades open during daytime hours. 3. Try to avoid unnecessary interruptions to sleep during nighttime hours. 4. Obtain glasses, hearing aids from home if patient uses these at baseline. 5. Avoid medications that may alter the patient's mental status (especially narcotics - consider another medication for pain if possible, benzos, barbiturates, ambien, lunesta, and medications with excessive anticholinergic properties). 6. Recommend haldol 2 mg IM Q6hrs PRN for agitation.
[2017-04-10] MEDS: ZESTRIL PO SCH (09:41)
[2017-04-10] MEDS: HEPARIN SUB-Q SCH (09:41)
[2017-04-10] MEDS: KEPPRA PO SCH (09:41)
[2017-04-10] MEDS: ARICEPT PO SCH (09:42)
[2017-04-10] MEDS: LOPRESSOR PO SCH (09:42)
[2017-04-10 09:45] VITALS: BP 149/73
--- NOTE | 2017-04-10 10:27 | Discharge Summary ---
Providers - Providers Date of Admission: 04/06/17 00:41 Date of discharge: 04/10/17 Attending physician: ROMAIN WORTHY 04/07/17 08:47 Consult to Mental Health [CONS] Routine Reason For Exam: AMS, confusion Place consult to:: Psychiatry Notified:: Psychiatry Phone number called:: [phone] Was contact made?: Yes If yes, spoke with:: Carmelina Time called:: 11:00 04/07/17 15:43 Physical Therapy Evaluation and Treat [CONS] Routine Comment: Reason For Exam: debility Hospitalization Condition: Fair Hospital course: Patient is 66 yo with hypertension, dementia presented with abdominal pain and nausea. CT showed ileus. She was made NPO, started on iv fluids and admitted. She was evaluated by GI. She improved and was started on liquid diet, then advanced to regular diet. During admission, she had hallucinations and Psychiatry was consulted. She continued to improve and was discharged home on 04/10/17. Total time spent on discharge, 32mins Disposition: [id number] HOME UNDER HOME HLTH - Discharge Diagnoses (1) Adynamic ileus Status: Acute (2) Encephalopathy acute Status: Acute (3) Hypokalemia Status: Acute (4) Dementia Status: Chronic Qualifiers: Dementia type: D Alzheimer's disease onset: A Dementia behavioral disturbance: D (5) History of stroke Status: Chronic (6) Hyperlipidemia Status: Chronic Qualifiers: Hyperlipidemia type: H (7) Hypertension Status: Chronic Qualifiers: Hypertension type: H Core Measure Documentation - Palliative Care Palliative Care/ Comfort Measures: Not Applicable - Core Measures Any of the following diagnoses?: none Exam - Physical Exam Narrative exam: Gen appearance :Not in acute distress, HEENT: Normocephalic, atraumatic Neck: Supple, no JVD Lungs: Clear to auscultation bilaterally, no crackles, or wheezes. Heart: S1 and S2 regular, no murmurs, no gallops, rub Abdomen : Soft, non-tender, non-distended, normal bowel sounds Extremities :No edema, no clubbing or cyanosis Neuro: awake,alert - Constitutional Vitals: Temp Pulse Resp BP Pulse Ox 99.2 F 69 18 149/73 97 04/10/17 10:04/10/17 10:04/10/17 10:04/10/17 10:04/10/17 10:00 Plan Activity: advance as tolerated Diet: low fat, low cholesterol, low salt Additional Instructions: 1.Follow up with PCP in 1 week Follow up with: PRIMARY CAREMD [Referring] - 3-5 Days
== END 2017-04-10 17:15 | disposition home health service (06) | DRG 388 ==
LOC: ED 14:33 → CC2 04-06 00:41 → OBSVTOIN 04-06 00:41
PROVIDERS: ADMIT Internal Medicine; ATTEND Internal Medicine
DX: K56.0 Paralytic ileus (principal); G93.40 Encephalopathy, unspecified; R44.3 Hallucinations, unspecified; S00.03XA Contusion of scalp, initial encounter; E78.5 Hyperlipidemia, unspecified; E87.6 Hypokalemia; W19.XXXA Unspecified fall, initial encounter; F03.90 Unspecified dementia, unspecified severity, without behavioral disturbance, psychotic disturbance, mood disturbance, and anxiety; G40.909 Epilepsy, unspecified, not intractable, without status epilepticus; I10 Essential (primary) hypertension; K59.00 Constipation, unspecified; Z95.0 Presence of cardiac pacemaker; Z86.73 Personal history of transient ischemic attack (TIA), and cerebral infarction without residual deficits
CPT/HCPCS: 36415; 70450; 74177; 80048; 80053; 82374; 82435; 82565; 82947; 82962; 83690; 84132; 84295; 84520; 85007; 85025; 96361; 96374; G8978-GP; G8979-GP; J0360; J1644; J2270; J7030; Q9967

== ENCOUNTER 2018-05-30 18:34 | Emergency (ER) | payer MEDICARE ==
[~2018-05-30 18:34] MED LIST: ADRENALIN ONE; SODIUM BICARBONATE IV ONE
--- NOTE | 2018-05-30 18:55 | Emergency Department Report ---
ED CPR HPI - General Stated Complaint: cpr Time Seen by Provider: 05/30/18 18:50 - History of Present Illness Initial Comments: Patient is 67 years old female with history of left sided stroke and dementia. Patient brought to the ER via EMS in full cardiac arrest, CPR in progress. EMS stated that patient was eating when all of a sudden stopped breathing family, no spontaneous breathing. EMS started ACLS protocol. Patient received a Combitube. Initially rhythm was asystole. Upon arrival to the ER, I removed the Combitube and removed some of the fluid bolus which is mainly chicken breast meet and I suctioned the patient and then intubated. ET tube confirmed was good breath on both sides and chains in the capnemtry coloring. ACLS protocol continued the patient remained in asystole. Patient pronounced at 18:48. For further information please referred to code sheet. Family informed. MD Complaint: stopped breathing Place: home Bystander CPR Performed: No AED Applied by Bystander/Oil Field Rig Builder: No Initial Findings in the Field: unresponsive, no pulse, systole ROSC in the Field: No Associated Injuries: No Treatments Prior to Arrival: other airway device (CardioVIP) - Related Data Home Medications Medication Instructions Recorded Confirmed Last Taken ALPRAZolam [Alprazolam] 0.5 mg PO Q12HR PRN 03/20/14 04/07/17 03/19/14 Donepezil [Aricept] 10 mg PO QDAY 03/20/14 04/07/17 04/05/17 Latanoprost 0.005% 1 drop OP QPM 09/21/15 04/07/17 04/04/17 1 drop Lisinopril [Zestril TAB] 5 mg PO QDAY 09/21/15 04/07/17 04/05/17 Previous Rx's Medication Instructions Recorded Last Taken Type Metoprolol [Lopressor TAB] 50 mg PO QDAY #30 tablet 08/15/14 04/05/17 Rx 50 mg levETIRAcetam [Keppra TAB] 500 mg PO BID 30 Days tablet 05/26/16 04/05/17 11: 49 Rx Allergies Allergy/AdvReac Type Severity Reaction Status Date / Time No Known Allergies Allergy Verified 08/13/14 08:26 ED Review of Systems ROS: Stated complaint: CHOKING Other details as noted in HPI Comment: Unobtainable due to pts medical conditions ED Past Medical Hx - Past Medical History Hx Hypertension: Yes Hx CVA: Yes (Left sided deficits, had resolved.) Hx Seizures: Yes (epilepsy) Hx Dementia: Yes - Surgical History Hx Pacemaker: Yes Additional Surgical History: pacemaker to L chest - Social History Smoking Status: Never Smoker - Medications Home Medications: Home Medications Medication Instructions Recorded Confirmed Last Taken Type ALPRAZolam [Alprazolam] 0.5 mg PO Q12HR PRN 03/20/14 04/07/17 03/19/14 History Donepezil [Aricept] 10 mg PO QDAY 03/20/14 04/07/17 04/05/17 History Metoprolol [Lopressor TAB] 50 mg PO QDAY #30 tablet 08/15/14 04/07/17 04/05/17 Rx 50 mg Latanoprost 0.005% 1 drop OP QPM 09/21/15 04/07/17 04/04/17 History 1 drop Lisinopril [Zestril TAB] 5 mg PO QDAY 09/21/15 04/07/17 04/05/17 History levETIRAcetam [Keppra TAB] 500 mg PO BID 30 Days tablet 05/26/16 04/07/1704/05 11:49 Rx ED Physical Exam - General General appearance: other (cpr in progress) - Head Head exam: Present: atraumatic, normocephalic, normal inspection - Eye Pupils: Present: other (3 mm, fixed and dilated) - ENT ENT exam: Present: other (food materials in the orapharyngeal cavity, ) - Respiratory Respiratory exam: Present: other (no spontaneous breathing) - Cardiovascular Cardiovascular Exam: Present: other (no pulse) - GI/Abdominal GI/Abdominal exam: Present: soft. Absent: distended - Extremities Exam Extremities exam: Present: normal inspection - Neurological Exam Neurological exam: Present: other (unresponsive) - Skin Skin exam: Present: warm, intact - Intubation Time Out Performed: Yes Sedative: none Laryngoscope: Dior Size: 4 ET Tube Size: 7.5 Tube Secured Location: lips Tube Placement Confirmation: visualized tube passing t, equal breath sounds bilat, no breath sounds over epi, confirmation by capnometr Patient Tolerated Procedure: well, no complications Critical Care Time: Yes Critical care time in (mins) excluding proc time.: 30 Critical care attestation.: If time is entered above; I have spent that time in minutes in the direct care of this critically ill patient, excluding procedure time. ED Disposition Clinical Impression: Cardiopulmonary arrest Disposition: DC-20 Is pt being admited?: No Condition: Stable Referrals: PRIMARY CARE, [Primary Care Provider] - 3-5 Days
== END 2018-05-30 21:04 ==
LOC: ED 18:34
DX: I46.9 Cardiac arrest, cause unspecified (principal); I10 Essential (primary) hypertension; F03.90 Unspecified dementia, unspecified severity, without behavioral disturbance, psychotic disturbance, mood disturbance, and anxiety; G40.909 Epilepsy, unspecified, not intractable, without status epilepticus; Z86.73 Personal history of transient ischemic attack (TIA), and cerebral infarction without residual deficits
CPT/HCPCS: 31500; 92950; 99291; J0171